=== PATIENT | male | born 1965 | race Caucasian/White ===

== ENCOUNTER → 2019-05-24 | Outpatient (CLI) | payer BC ==
--- NOTE | 2019-05-24 12:00 | KCIC ---
EXAM: Right shoulder, 3 views. HISTORY: Supraspinatus tendinitis. COMPARISON: None. FINDINGS: 3 views of the right shoulder obtained. There is no fracture, dislocation or subluxation. There is mild acromioclavicular spurring, including a small inferiorly directed distal clavicular spur. There is minimal glenohumeral spurring. IMPRESSION: 1. Mild acromioclavicular and minimal glenohumeral osteoarthritis. 2. No acute osseous finding. Electronically signed by: Silva Apple MD (05/24/2019 11:57 AM) [facility] [place]
--- NOTE | 2019-05-24 18:59 | KCIC ---
Examination: Sacrum and coccyx 3 views INDICATION: Sacral pain post fall COMPARISON: None. FINDINGS: No fracture or dislocation is apparent. Sacral iliac joints and pubic symphysis are unremarkable. Incidental degenerative changes of the lumbosacral junction. The visualized hip joints also within normal limits. Soft tissues show scattered calcifications in the pelvis compatible phleboliths. IMPRESSION: No acute osseous abnormality in the sacrum or coccyx by x-ray. Electronically signed by: Kenia Johnson MD (05/24/2019 6:56 PM) [facility]
== END | disposition home or self-care (01) ==
LOC: KCIC 10:52
PROVIDERS: ATTEND Family Medicine
DX: M19.011 Primary osteoarthritis, right shoulder (principal); M47.817 Spondylosis without myelopathy or radiculopathy, lumbosacral region; M75.91 Shoulder lesion, unspecified, right shoulder; M53.3 Sacrococcygeal disorders, not elsewhere classified
CPT/HCPCS: 72220; 73030

== ENCOUNTER → 2019-06-06 | Outpatient (CLI) | payer BC ==
--- NOTE | 2019-06-06 08:19 | KCIC ---
EYE FOR FOREIGN BODY History: Prior eye injury. Screen for MRI. [employer]. Technique: 2 views of the orbits. Comparison: None. Findings: No orbital metallic foreign body. Dental amalgam. Impression: 1. No orbital metallic foreign body. Electronically signed by: Kyree Sepulveda DO (06/06/2019 8:16 AM) [id number]
== END | disposition home or self-care (01) ==
LOC: KCIC MRI 07:51
PROVIDERS: ATTEND Family Medicine
DX: Z01.00 Encounter for examination of eyes and vision without abnormal findings (principal)
CPT/HCPCS: 70030

== ENCOUNTER → 2019-06-17 | Outpatient (CLI) | payer BC ==
--- NOTE | 2019-06-17 09:28 | KCIC ---
MR of the right shoulder HISTORY: Right shoulder pain. Injury 04/09/2019. TECHNIQUE: Routine multiplanar sequences are obtained. FINDINGS: The acromioclavicular joint is degenerative, with undersurface osteophytes and mass effect. Full-thickness rotator cuff tear of the supraspinatus tendon measures 3 cm AP diameter. Tendinosis and partial thickness tearing extending posterior to this. Mild muscle atrophy. Partial subscapularis tendon tear. Mild subdeltoid bursal effusion. Glenohumeral joint degenerative changes with trace effusion. Mild distortion of the posterior through superior labrum. There is also mild distortion and signal of the inferior labrum. No acute appearing labral detachment. Biceps tendon is intact. No acute fracture. No aggressive bone destruction. No acute soft tissue abnormality. IMPRESSION: 1. Moderate full-thickness rotator cuff tear of the supraspinatus, with high-grade tearing through the more posterior rotator cuff. Partial subscapularis tendon tear. 2. DJD. 3. Labral degeneration/chronic tearing. Electronically signed by: Joseph Arroyo MD (06/17/2019 9:25 AM) [id number]
== END | disposition home or self-care (01) ==
LOC: KCIC MRI 08:03
PROVIDERS: ATTEND Family Medicine
DX: S43.491A Other sprain of right shoulder joint, initial encounter (principal); S46.011A Strain of muscle(s) and tendon(s) of the rotator cuff of right shoulder, initial encounter; M19.011 Primary osteoarthritis, right shoulder; M25.411 Effusion, right shoulder; M25.711 Osteophyte, right shoulder; M62.58 Muscle wasting and atrophy, not elsewhere classified, other site; M75.91 Shoulder lesion, unspecified, right shoulder
CPT/HCPCS: 73221

== ENCOUNTER → 2020-12-31 | Outpatient (CLI) | payer OTHER ==
--- NOTE | 2020-12-31 15:49 | KCIC ---
EXAM: CT CORONARY CALCIUM SCORING. HISTORY: Coronary risk factors. Calcium scoring is requested. Family history of coronary disease, hyp ercholesterolemia, hypertension. COMPARISON: None. FINDINGS: Limited noncontrast CT of the chest was performed for coronary calcium scoring. Refer to [facility] worksheets for full detail. *One or more of the following individualized dose reduction techniques were utilized for this examination: 1. Automated exposure control. 2. Adjustment of the mA and/or kV according to patient size. 3. Use of iterative reconstruction technique. Coronary calcium scoring is as follows: LMA: 0. LAD: 0. LCX: 0. RCA: 0. PDA: 0. Total: 0. This places the patient at the 0th percentile in age- and sex-matched subjects. The included portions of the chest reveal the following. Bone windows reveal no suspicious lesions. I mages of the upper abdomen reveal no acute abnormality. There are no pathologically enlarged mediastinal lymph nodes. There is no pleural or pericardial effu casie. The heart is not enlarged. A 2 mm uncalcified nodule in the left lower lobe on image 42 is most likely benign at this small size . Additional tiny nodules along the left major fissure are consistent with benign intrafissural lymph nodes. These require no further follow-up in the absence of strong risk factors. IMPRESSION: 1. Coronary calcium score 0. Electronically signed by: Cristal Parrish MD (12/31/2020 3:46 PM) [facility]
== END ==
LOC: KCIC CT 14:37
PROVIDERS: ATTEND Family Medicine
DX: Z13.6 Encounter for screening for cardiovascular disorders (principal); R91.8 Other nonspecific abnormal finding of lung field
CPT/HCPCS: 75571